=== PATIENT | female | born 1980 | race Caucasian/White ===

== ENCOUNTER → 2018-08-23 | Outpatient (CLI) | payer OTHER ==
[~2018-08-23] MED LIST: BUSPIRONE HCL10 MG PO; CELEBREX 200 M200 M1 PO; COLACE100 MG PO; ESTRADIOL 1 MG T1 M1 PO; FENOFIBRATE160 MG PO; GEODON 80 MG CA80 MG PO; JANUVIA 50 MG T50 MG PO; LIPITOR20 MG PO; MACRODANTIN100 MG PO; MINIPRESS5 MG PO; MIRALAX17 GM PO; MOBIC7.5 MG PO; NEURONTIN 300300 M1 PO; OMEPRAZOLE 20 M20 M1 PO; OXYBUTYNIN 5 MG5 M2 PO; PRAZOSIN 1 MG CA1 M1 PO; TOPAMAX 25 MG T25 M1 PO; TRAMADOL 50 MG50 MG PO; TRAZODONE HCL100 MG PO; ZANAFLEX4 MG PO
== END | disposition home or self-care (01) ==
LOC: LITH 11:08
DX: N20.0 Calculus of kidney (principal); Z90.710 Acquired absence of both cervix and uterus; Z98.890 Other specified postprocedural states; Z79.899 Other long term (current) drug therapy; E11.9 Type 2 diabetes mellitus without complications; I25.10 Atherosclerotic heart disease of native coronary artery without angina pectoris; E78.00 Pure hypercholesterolemia, unspecified; G47.30 Sleep apnea, unspecified; F32.9 Major depressive disorder, single episode, unspecified